=== PATIENT | female | born 1960 | race Caucasian/White ===

== ENCOUNTER 2022-07-28 09:05 | Inpatient (IN) | payer MEDICARE, OTHER ==
[~2022-07-28] VITALS: Ht 167.6 cm; Wt 50.0 kg
[2022-07-28] MEDS ORDERED: LORAZEPAM INJ 2 MG/ML VIAL ONE ×2 (10:25→12:05)
[2022-07-28] MEDS ORDERED: LORAZEPAM INJ 2 MG/ML VIAL IV ONE ×2 (10:30→12:00)
[2022-07-28 10:42] LABS: BASOPHILS % (AUTO) 0.1 % (0.0-2.0); EOSINOPHILS % (AUTO) 0.2 % (0.0-6.0); HEMATOCRIT 44 % (33-45); HEMOGLOBIN 15.1 g/dL (11.5-14.8); LYMPHOCYTES # (AUTO) 1.4 K/uL (0.8-4.8); LYMPHOCYTES % (AUTO) 8.3 % (20.0-44.0); MEAN CORPUSCULAR HGB CONC 35 g/dl (31.0-36.0); MEAN CORPUSCULAR VOLUME 85 fL (82-100); MONOCYTES # (AUTO) 1.1 K/uL (0.1-1.30); MONOCYTES % (AUTO) 6.7 % (2.0-12.0); NEUTROPHILS # (AUTO) 13.9 K/uL (1.8-8.9); NEUTROPHILS % (AUTO) 84.7 % (43.0-81.0); PLATELET COUNT (AUTO) 237 K/uL (150-450); RED BLOOD CELL COUNT(AUTO) 5.19 MIL/uL (4.0-5.2); WHITE BLOOD COUNT (AUTO) 16.4 K/uL (4.3-11.0)
[2022-07-28] MEDS ORDERED: IV NS 0.9% 1,000 ML IV ONE (12:00)
[2022-07-28 12:08] LABS: ALBUMIN 3.5 g/dL (3.4-5.0); BILIRUBIN,DIRECT 0.1 mg/dL (0.0-0.2); BILIRUBIN,TOTAL 0.2 mg/dL (0.2-1.0); CALCIUM, SERUM 8.8 mg/dL (8.5-10.1); CREATININE 0.8 mg/dL (0.6-1.3); POTASSIUM 3.7 mmol/L (3.5-5.1)
[2022-07-28] MEDS ORDERED: CEFTRIAXONE 1GM BAG (ER ONLY) 50 ML IV ONE (12:41)
[2022-07-28 12:54] LABS: BILIRUBIN,URINE NEGATIVE (NEGATIVE); COLOR,URINE YELLOW (YELLOW); LEUKOCYTE ESTERASE ,URINE LARGE (NEGATIVE); NITRITE, URINE POSITIVE (NEGATIVE); PROTEIN,URINE NEGATIVE (NEGATIVE); UGLUCOSE NEGATIVE (NEGATIVE); UROBILINOGEN,URINE 0.2 EU/dL (0.2)
[2022-07-28] MEDS ORDERED: CEFTRIAXONE 1 G in IV D5W 50 ML IV ONE (13:00)
[2022-07-28] MEDS ORDERED: IV LR 1000 ML 1,000 ML IV ONE (13:00)
[2022-07-28 13:14] LABS: BACTERIA,URINE 2+ /HPF (None Seen); RBC,URINE NONE SEEN /HPF (0-2); WBC,URINE TOO NUMEROUS TO COUN /HPF (0-3)
[2022-07-28] MEDS ORDERED: CHOL200013 PO (14:02)
[2022-07-28] MEDS ORDERED: DIVA500T2 PO ×2 (14:02)
[2022-07-28] MEDS ORDERED: LACT20SO4 PO (14:02)
[2022-07-28] MEDS ORDERED: DOCU-141 PO (14:02)
[2022-07-28] MEDS ORDERED: SENN-175 PO (14:02)
[2022-07-28] MEDS ORDERED: CRAN3875 PO (14:02)
[2022-07-28] MEDS ORDERED: PARO10TA86 PO (14:02)
[2022-07-28] MEDS ORDERED: ACET325T53 PO (14:02)
[2022-07-28] MEDS ORDERED: MULT-439 PO (14:02)
[2022-07-28] MEDS ORDERED: LORA-258 PO (14:02)
[2022-07-28 18:00] VITALS: BP 117/58
[2022-07-28] MEDS ORDERED: MAG HYDROX/AL HYDROX/SIMETH 30 ML UDC PO PRN (18:00)
[2022-07-28] MEDS ORDERED: ACETAMINOPHEN 325 MG TABLET PO PRN (18:00)
[2022-07-28] MEDS ORDERED: Z GUARD REMEDY 4 OZ OINT TP PRN (18:00)
[2022-07-28] MEDS ORDERED: MAGNESIUM HYDROXIDE 30 ML UDC PO PRN (18:00)
[2022-07-28] MEDS ORDERED: ONDANSETRON HCL/PF 4 MG/2 ML VIAL IVP PRN (18:00)
[2022-07-28] MEDS: ENOXAPARIN SODIUM 40 MG/0.4 ML DISP.SYRIN SQ SCH (18:29)
[2022-07-28] MEDS: IV NS 0.9% 1,000 ML IV PRN (19:15)
[2022-07-28 20:00] VITALS: BP 148/60
[2022-07-28] MEDS ORDERED: DIVALPROEX SODIUM 125 MG CAP.SPRINK PO SCH (22:00)
[2022-07-28] MEDS ORDERED: ZOLPIDEM TARTRATE 5 MG TABLET PO PRN (22:00)
[2022-07-29 03:40] VITALS: BP 120/68
[2022-07-29 04:26] VITALS: BP 116/60
[2022-07-29 06:48] LABS: BASOPHILS % (AUTO) 0.4 % (0.0-2.0); EOSINOPHILS % (AUTO) 0.9 % (0.0-6.0); HEMATOCRIT 45 % (33-45); HEMOGLOBIN 14.2 g/dL (11.5-14.8); LYMPHOCYTES # (AUTO) 2.7 K/uL (0.8-4.8); LYMPHOCYTES % (AUTO) 39.8 % (20.0-44.0); MEAN CORPUSCULAR HGB CONC 32 g/dl (31.0-36.0); MEAN CORPUSCULAR VOLUME 93 fL (82-100); MONOCYTES # (AUTO) 0.7 K/uL (0.1-1.30); MONOCYTES % (AUTO) 10.5 % (2.0-12.0); NEUTROPHILS # (AUTO) 3.3 K/uL (1.8-8.9); NEUTROPHILS % (AUTO) 48.4 % (43.0-81.0); PLATELET COUNT (AUTO) 157 K/uL (150-450); RED BLOOD CELL COUNT(AUTO) 4.83 MIL/uL (4.0-5.2); WHITE BLOOD COUNT (AUTO) 6.7 K/uL (4.3-11.0)
[2022-07-29 07:17] LABS: CALCIUM, SERUM 8.2 mg/dL (8.5-10.1); CREATININE 0.7 mg/dL (0.6-1.3); MAGNESIUM 2.4 mg/dL (1.8-2.4); PHOSPHORUS 3.4 mg/dL (2.5-4.9); POTASSIUM 4.6 mmol/L (3.5-5.1)
[2022-07-29] MEDS: ACETAMINOPHEN 325 MG TABLET PO SCH (08:55)
[2022-07-29] MEDS: DOCUSATE SODIUM 100 MG CAPSULE PO SCH ×2 (08:55→17:46)
[2022-07-29] MEDS: PAROXETINE HCL 10 MG TABLET PO SCH (08:55)
[2022-07-29] MEDS: LORAZEPAM 0.5 MG TABLET PO SCH ×2 (08:55→17:46)
[2022-07-29] MEDS: MULTIVIT W/MINERALS 1 TAB TABLET PO SCH (08:56)
[2022-07-29] MEDS: SENNOSIDES 8.6 MG TABLET PO SCH ×2 (08:56→17:46)
[2022-07-29] MEDS: CHOLECALCIFEROL 1,000 UNIT TABLET (VIT D3) PO SCH (08:57)
[2022-07-29] MEDS: LACTULOSE 10 G/15 ML UDC (PYXIS) PO SCH (08:57)
[2022-07-29] MEDS ORDERED: Medication Not On Formulary EA (Cran/Vitc/Mannose/Inulin/Brom (Uti-Stat Liquid) 3,875 MG PO SCH (09:00)
[2022-07-29] MEDS ORDERED: DIVALPROEX SODIUM 125 MG CAP.SPRINK PO SCH (09:00)
[2022-07-29] MEDS: DIVALPROEX SODIUM 125 MG CAP.SPRINK PO SCH ×3 (09:02→21:45)
[2022-07-29] MEDS: PANTOPRAZOLE 40 MG TABLET.DR PO SCH (09:02)
[2022-07-29] MEDS: IV NS 0.9% 1,000 ML IV PRN ×2 (09:37→21:45)
[2022-07-29] MEDS: LORAZEPAM INJ 2 MG/ML VIAL IV PRN (14:20)
[2022-07-29] MEDS: CEFTRIAXONE 1 G in IV D5W 50 ML IV SCH (17:46)
[2022-07-29] MEDS: ENOXAPARIN SODIUM 40 MG/0.4 ML DISP.SYRIN SQ SCH (17:47)
[2022-07-29 20:00] VITALS: BP 111/63
[2022-07-30] VITALS: BP_SYST 150; BP_SYST 159; BP_DIAS 63
[2022-07-30 04:00] VITALS: BP 140/61
[2022-07-30] MEDS: DIVALPROEX SODIUM 125 MG CAP.SPRINK PO SCH ×3 (04:21→20:45)
[2022-07-30 07:06] LABS: BASOPHILS % (AUTO) 0.4 % (0.0-2.0); EOSINOPHILS % (AUTO) 0.3 % (0.0-6.0); HEMATOCRIT 40 % (33-45); HEMOGLOBIN 13.6 g/dL (11.5-14.8); LYMPHOCYTES % (AUTO) 21.9 % (20.0-44.0); MEAN CORPUSCULAR HGB CONC 35 g/dl (31.0-36.0); MEAN CORPUSCULAR VOLUME 85 fL (82-100); MONOCYTES # (AUTO) 0.6 K/uL (0.1-1.30); MONOCYTES % (AUTO) 12.7 % (2.0-12.0); NEUTROPHILS # (AUTO) 3.1 K/uL (1.8-8.9); NEUTROPHILS % (AUTO) 64.7 % (43.0-81.0); PLATELET COUNT (AUTO) 156 K/uL (150-450); RED BLOOD CELL COUNT(AUTO) 4.64 MIL/uL (4.0-5.2); WHITE BLOOD COUNT (AUTO) 4.7 K/uL (4.3-11.0)
[2022-07-30] MEDS: PANTOPRAZOLE 40 MG TABLET.DR PO SCH (07:24)
[2022-07-30 07:28] LABS: CALCIUM, SERUM 8.3 mg/dL (8.5-10.1); CREATININE 0.7 mg/dL (0.6-1.3); MAGNESIUM 2.4 mg/dL (1.8-2.4); PHOSPHORUS 3.9 mg/dL (2.5-4.9); POTASSIUM 3.7 mmol/L (3.5-5.1)
[2022-07-30 08:00] VITALS: BP 112/57
[2022-07-30] MEDS: LACTULOSE 10 G/15 ML UDC (PYXIS) PO SCH (08:38)
[2022-07-30] MEDS: PAROXETINE HCL 10 MG TABLET PO SCH (08:38)
[2022-07-30] MEDS: MULTIVIT W/MINERALS 1 TAB TABLET PO SCH (08:38)
[2022-07-30] MEDS: DOCUSATE SODIUM 100 MG CAPSULE PO SCH ×2 (08:39→16:50)
[2022-07-30] MEDS: ACETAMINOPHEN 325 MG TABLET PO SCH (08:39)
[2022-07-30] MEDS: CHOLECALCIFEROL 1,000 UNIT TABLET (VIT D3) PO SCH (08:39)
[2022-07-30] MEDS: SENNOSIDES 8.6 MG TABLET PO SCH ×2 (08:39→16:50)
[2022-07-30] MEDS: LORAZEPAM 0.5 MG TABLET PO SCH ×2 (08:47→16:50)
[2022-07-30 12:00] VITALS: BP 93/46
[2022-07-30 16:00] VITALS: BP 128/64
[2022-07-30] MEDS: ENSURE ENLIVE 237 ML LIQUID (VANILLA) PO SCH (17:13)
[2022-07-30] MEDS: CEFTRIAXONE 1 G in IV D5W 50 ML IV SCH (17:34)
[2022-07-30] MEDS: ENOXAPARIN SODIUM 40 MG/0.4 ML DISP.SYRIN SQ SCH (17:35)
[2022-07-30] MEDS: IV NS 0.9% 1,000 ML IV PRN (18:14)
[2022-07-30 20:00] VITALS: BP 122/74
[2022-07-31] VITALS: BP 125/97
[2022-07-31] MEDS: LORAZEPAM INJ 2 MG/ML VIAL IV PRN ×2 (01:31→22:52)
[2022-07-31 04:00] VITALS: BP 143/91
[2022-07-31 07:02] LABS: CALCIUM, SERUM 8.4 mg/dL (8.5-10.1); CREATININE 0.7 mg/dL (0.6-1.3); MAGNESIUM 2.1 mg/dL (1.8-2.4); PHOSPHORUS 3.6 mg/dL (2.5-4.9); POTASSIUM 3.5 mmol/L (3.5-5.1)
[2022-07-31 08:00] VITALS: BP 125/54
[2022-07-31] MEDS: PAROXETINE HCL 10 MG TABLET PO SCH (08:29)
[2022-07-31] MEDS: ACETAMINOPHEN 325 MG TABLET PO SCH (08:29)
[2022-07-31] MEDS: SENNOSIDES 8.6 MG TABLET PO SCH ×2 (08:29→16:24)
[2022-07-31] MEDS: LACTULOSE 10 G/15 ML UDC (PYXIS) PO SCH (08:29)
[2022-07-31] MEDS: MULTIVIT W/MINERALS 1 TAB TABLET PO SCH (08:29)
[2022-07-31] MEDS: PANTOPRAZOLE 40 MG TABLET.DR PO SCH (08:29)
[2022-07-31] MEDS: CHOLECALCIFEROL 1,000 UNIT TABLET (VIT D3) PO SCH (08:29)
[2022-07-31] MEDS: DOCUSATE SODIUM 100 MG CAPSULE PO SCH ×2 (08:29→16:24)
[2022-07-31] MEDS: ENSURE ENLIVE 237 ML LIQUID (VANILLA) PO SCH ×3 (08:30→16:23)
[2022-07-31] MEDS: LORAZEPAM 0.5 MG TABLET PO SCH ×2 (08:30→16:24)
[2022-07-31] MEDS: DIVALPROEX SODIUM 125 MG CAP.SPRINK PO SCH ×2 (08:30→21:10)
[2022-07-31 09:00] LABS: BASOPHILS % (AUTO) 0.5 % (0.0-2.0); EOSINOPHILS % (AUTO) 1.5 % (0.0-6.0); HEMATOCRIT 39 % (33-45); HEMOGLOBIN 13.2 g/dL (11.5-14.8); LYMPHOCYTES # (AUTO) 1.9 K/uL (0.8-4.8); LYMPHOCYTES % (AUTO) 41.2 % (20.0-44.0); MEAN CORPUSCULAR HGB CONC 34 g/dl (31.0-36.0); MEAN CORPUSCULAR VOLUME 85 fL (82-100); MONOCYTES # (AUTO) 0.8 K/uL (0.1-1.30); NEUTROPHILS # (AUTO) 1.8 K/uL (1.8-8.9); NEUTROPHILS % (AUTO) 38.8 % (43.0-81.0); PLATELET COUNT (AUTO) 166 K/uL (150-450); RED BLOOD CELL COUNT(AUTO) 4.55 MIL/uL (4.0-5.2); WHITE BLOOD COUNT (AUTO) 4.7 K/uL (4.3-11.0)
[2022-07-31 09:34] LABS: BAND % (MANUAL) 2 % (0.0-5.0); EOSINOPHILS % (MANUAL) 3 % (0-4); LYMPHOCYTES % (MANUAL) 41 % (16-48); MONOCYTES % (MANUAL) 10 % (0-11.0); NEUTROPHILS % (MANUAL) 44 (42-76)
[2022-07-31] MEDS: NITROFURANTOIN/MONOHYDRATE MACROCRYSTALS 100 MG CAPSULE PO SCH ×2 (11:00→21:10)
[2022-07-31] MEDS: IV NS 0.9% 1,000 ML IV PRN (14:59)
[2022-07-31 16:00] VITALS: BP 101/76
[2022-07-31] MEDS: ENOXAPARIN SODIUM 40 MG/0.4 ML DISP.SYRIN SQ SCH (17:59)
[2022-07-31 20:00] VITALS: BP 106/55
[2022-07-31 20:34] VITALS: BP 106/55
[2022-08-01 00:10] VITALS: BP 140/81
[2022-08-01 04:37] VITALS: BP 110/84
[2022-08-01 06:06] LABS: CALCIUM, SERUM 8.7 mg/dL (8.5-10.1); CREATININE 0.6 mg/dL (0.6-1.3); MAGNESIUM 2.5 mg/dL (1.8-2.4); POTASSIUM 4.1 mmol/L (3.5-5.1)
[2022-08-01 07:12] LABS: BASOPHILS % (AUTO) 0.2 % (0.0-2.0); EOSINOPHILS % (AUTO) 1.9 % (0.0-6.0); HEMATOCRIT 40 % (33-45); HEMOGLOBIN 13.8 g/dL (11.5-14.8); LYMPHOCYTES % (AUTO) 37.6 % (20.0-44.0); MEAN CORPUSCULAR HGB CONC 35 g/dl (31.0-36.0); MEAN CORPUSCULAR VOLUME 83 fL (82-100); MONOCYTES # (AUTO) 0.5 K/uL (0.1-1.30); MONOCYTES % (AUTO) 9.5 % (2.0-12.0); NEUTROPHILS # (AUTO) 2.7 K/uL (1.8-8.9); NEUTROPHILS % (AUTO) 50.8 % (43.0-81.0); PLATELET COUNT (AUTO) 182 K/uL (150-450); RED BLOOD CELL COUNT(AUTO) 4.81 MIL/uL (4.0-5.2); WHITE BLOOD COUNT (AUTO) 5.4 K/uL (4.3-11.0)
[2022-08-01 08:00] VITALS: BP 130/72
[2022-08-01] MEDS: ENSURE ENLIVE 237 ML LIQUID (VANILLA) PO SCH ×3 (08:27→17:06)
[2022-08-01] MEDS: NITROFURANTOIN/MONOHYDRATE MACROCRYSTALS 100 MG CAPSULE PO SCH (08:28)
[2022-08-01] MEDS: DOCUSATE SODIUM 100 MG CAPSULE PO SCH ×2 (08:28→17:03)
[2022-08-01] MEDS: SENNOSIDES 8.6 MG TABLET PO SCH ×2 (08:28→17:03)
[2022-08-01] MEDS: ACETAMINOPHEN 325 MG TABLET PO SCH (08:29)
[2022-08-01] MEDS: LACTULOSE 10 G/15 ML UDC (PYXIS) PO SCH (08:29)
[2022-08-01] MEDS: DIVALPROEX SODIUM 125 MG CAP.SPRINK PO SCH (08:29)
[2022-08-01] MEDS: CHOLECALCIFEROL 1,000 UNIT TABLET (VIT D3) PO SCH (08:29)
[2022-08-01] MEDS: PAROXETINE HCL 10 MG TABLET PO SCH (08:29)
[2022-08-01] MEDS: MULTIVIT W/MINERALS 1 TAB TABLET PO SCH (08:30)
[2022-08-01] MEDS: PANTOPRAZOLE 40 MG TABLET.DR PO SCH (08:30)
[2022-08-01] MEDS: LORAZEPAM 0.5 MG TABLET PO SCH ×2 (08:30→17:03)
[2022-08-01] MEDS ORDERED: DIVA125C2 PO (11:44)
[2022-08-01] MEDS ORDERED: NITR100C15 PO (11:44)
[2022-08-01 12:00] VITALS: BP 132/76
[2022-08-01 16:00] VITALS: BP 132/72
[2022-08-01] MEDS: ENOXAPARIN SODIUM 40 MG/0.4 ML DISP.SYRIN SQ SCH (17:07)
[2022-08-03 15:07] LABS: *HIV-1 RNA BY PCR <20 copies/mL (.)
== END 2022-08-01 20:13 | DRG 872 ==
LOC: ER 09:13 → TELE 16:47
PROVIDERS: ADMIT Student in an Organized Health Care Education/Training Program; ATTEND Nurse Practitioner Family
DX: A41.9 Sepsis, unspecified organism (principal); N39.0 Urinary tract infection, site not specified; Z16.12 Extended spectrum beta lactamase (ESBL) resistance; Z86.16 Personal history of COVID-19; F41.9 Anxiety disorder, unspecified; F03.90 Unspecified dementia, unspecified severity, without behavioral disturbance, psychotic disturbance, mood disturbance, and anxiety; B96.20 Unspecified Escherichia coli [E. coli] as the cause of diseases classified elsewhere; F31.9 Bipolar disorder, unspecified; M19.90 Unspecified osteoarthritis, unspecified site; Z20.822 Contact with and (suspected) exposure to COVID-19; R56.9 Unspecified convulsions
CPT/HCPCS: 36415; 70450-TC; 71045-TC; 80048-TC; 80076-TC; 81001; 82962-TC; 83605-TC; 83735-TC; 84100-TC; 85025-TC; 85730-TC; 86592; 86593; 87040-TC; 87081-TC; 87086-TC; 87186-TC; 87491; 87536; 87591; 95819-TC; C9803; G0378; J0696; J1650; J2060; J7030; J7060; J7120